=== PATIENT | male | born 1980 | race Caucasian/White ===

== ENCOUNTER 2022-02-15 23:13 | Emergency (ER) | payer OTHER ==
[2022-02-15] MEDS ORDERED: Lidocaine 1% 5 ML VIAL INJECT ONE (23:20)
[2022-02-15] MEDS ORDERED: Diphtheria,Pertussis(Acell),Tetanus Vaccine 0.5 ML Syringe IM ONE (23:26)
[2022-02-15] MEDS ORDERED: Bacitracin Oint 1 GM U/D Packet TOP ONE (23:27)
== END 2022-02-16 00:09 | disposition home or self-care (01) ==
LOC: JP.ED 23:13
DX: S41.131A Puncture wound without foreign body of right upper arm, initial encounter (principal); Z23 Encounter for immunization; W45.8XXA Other foreign body or object entering through skin, initial encounter
CPT/HCPCS: 90471; 90715; 99283-25